=== PATIENT | male | born 1930 | race Caucasian/White ===

== ENCOUNTER 2018-04-25 10:30 | Outpatient (CLI) | payer MEDICARE, BC ==
--- NOTE | 2018-04-25 13:35 | CT ---
CT ABDOMEN AND PELVIS WITH IV CONTRAST: Date: 04/25/18 HISTORY: Colon cancer. COMPARISON: Noncontrasted CT scan of the abdomen and pelvis dated 12/21/16. FINDINGS: Mild chronic changes in the lung bases are again seen. The liver, spleen, right adrenal gland, and le ft kidney are normal. Fatty infiltration of the pancreas again seen. The 15.0 mm left adrenal nodule is stable. 9.0 mm cyst in the right kidney adjacent to a 6.0 mm exoph ytic probable complex nodule are stable. No free air, free fluid, or lymphadenopathy noted in the abdomen or pelvis. There are vascular calcif ications with stable 3.5 cm intrarenal abdominal aortic aneurysm and 2.8 cm right common iliac aneury sm. The prostate is enlarged. There is colonic diverticulosis. The small bowel loops are not abnormally d ilated. A normal appearing appendix is present. A tiny calculus is again seen in the gallbladder. A f at-containing left inguinal hernia is present. There are degenerative changes in the spine. Moderate spondylolisthesis at L5-S1 is again noted. IMPRESSION: 1. Stable right renal lesions. 2. Stable left adrenal nodule. 3. Prostatic enlargement. 4. Colonic diverticulosis. 5. Stable aneurysms of the abdominal aorta (3.5 cm) and right common iliac artery (2.8 cm). POS: [facility]
[2018-04-25] MEDS ORDERED: Iopamidol 370 76% 100 ML VIAL ONE (13:40)
== END 2018-04-25 10:31 | disposition home or self-care (01) ==
LOC: BICCT 10:30
PROVIDERS: ATTEND Internal Medicine Gastroenterology
DX: C18.9 Malignant neoplasm of colon, unspecified (principal); N28.9 Disorder of kidney and ureter, unspecified; E27.8 Other specified disorders of adrenal gland; N40.0 Benign prostatic hyperplasia without lower urinary tract symptoms; K57.30 Diverticulosis of large intestine without perforation or abscess without bleeding; I71.4 Abdominal aortic aneurysm, without rupture; I72.3 Aneurysm of iliac artery
CPT/HCPCS: 74177; 82565

== ENCOUNTER 2019-01-15 07:07 | Emergency (ER) | payer MEDICARE, BC ==
[2019-01-15 07:57] LABS: #Eosinphils 0.1 thou/uL (0.0-0.7); #Lymphocytes 1.1 thou/uL (1.20-3.40); #Monocytes 1.2 thou/uL (0.11-0.59); %Basophils 0.2 % (0.0-1.0); %Eosinophils 0.5 % (0.0-10.0); %Lymphocytes 10.4 % (21.0-51.0); %Neutrophils 76.9 % (42.0-75.0); Hemoglobin 12.9 g/dL (14.0-18.0); Mean Corpuscular HGB CONC 30.8 g/dL (32.0-36.0); Mean Corpuscular Hemoglobin 26.5 pg (27.0-31.0); Mean Platelet Volume 10.1 fL (7.4-10.4); Platelet Count 202 thou/uL (130-400); RBC Distribution Width 15.6 % (11.5-14.5); Red Blood Cell (RBC) Count 4.85 mill/uL (4.70-6.10); White Blood Cell (WBC) Count 10.4 thou/uL (4.8-10.8)
[2019-01-15] MEDS ORDERED: Carvedilol 6.25 MG TAB PO SCH ×2 (08:00→09:45)
[2019-01-15 08:19] LABS: ALT (SGPT) 14 U/L (8-55); AST (SGOT) 16 U/L (5-34); Albumin 4.4 g/dL (3.4-4.8); Alkaline Phosphatase 98 U/L (40-150); Anion Gap 16 mmol/L (10-20); BUN (Urea Nitrogen) 32 mg/dL (8.4-25.7); Bilirubin, Total 1.6 mg/dL (0.2-1.2); Calc. Creatinine Clearance 0 mL/min (70-130); Calcium 10.3 mg/dL (7.8-10.44); Carbon Dioxide 21 mmol/L (23-31); Chloride 106 mmol/L (98-107); Estimated GFR-MDRD 42; Globulin 3.1 g/dL (2.4-3.5); Glucose 172 mg/dL (83-110); Potassium 4.9 mmol/L (3.5-5.1); Protein, Total 7.5 g/dL (5.8-8.1); Sodium 138 mmol/L (136-145)
[2019-01-15 08:41] LABS: CKMB 2.6 ng/mL (0-6.6)
--- NOTE | 2019-01-15 08:43 | RAD ---
SINGLE VIEW CHEST: Date: 01/15/19 COMPARISON: 09/21/18. HISTORY: Shortness of breath that started last night. FINDINGS: Single view of chest shows an enlarged but stable cardiomediastinal silhouette. The pacemaker is unch anged in position. There is no evidence of consolidation, mass, or pleural effusion. IMPRESSION: Stable exam. POS: [facility]
[2019-01-15 11:54] LABS: CKMB 2.2 ng/mL (0-6.6)
[2019-01-15] MEDS ORDERED: Furosemide 20 MG/2 ML VIAL ONE (12:57)
[2019-01-15 13:41] LABS: Bilirubin Small (Negative); Blood, Urine Negative (Negative); Clarity CLEAR (Clear); Glucose, Urine (Dipstick) Negative (Negative); Leukocyte Small (Negative); Nitrite Negative (Negative); Protein, Urine (Dipstick) 30 mg/dL (Neg-Trace); Specific Gravity, Urine 1.025 (1.002-1.036); Urobilinogen 0.2 mg/dL (0.2-1.0)
[2019-01-15 13:45] LABS: Bacteria/HPF None Seen HPF (None Seen); RBC/HPF 0-3 HPF (0-3); Squamous Epithelial 0-3 HPF (0-3)
[2019-01-15 13:56] LABS: Hyaline Casts/LPF 7-10 HYALINE CAST LPF (0-3 Hyaline)
== END 2019-01-15 14:17 | disposition home or self-care (01) ==
LOC: ERS 07:07
DX: I48.91 Unspecified atrial fibrillation (principal); R60.9 Edema, unspecified; E03.9 Hypothyroidism, unspecified; I11.0 Hypertensive heart disease with heart failure; I50.9 Heart failure, unspecified; I25.2 Old myocardial infarction; E78.5 Hyperlipidemia, unspecified; F03.90 Unspecified dementia, unspecified severity, without behavioral disturbance, psychotic disturbance, mood disturbance, and anxiety; Z79.899 Other long term (current) drug therapy; Z79.891 Long term (current) use of opiate analgesic; Z79.82 Long term (current) use of aspirin
CPT/HCPCS: 36415; 71045; 80053; 81003; 81015; 82553; 83605; 83735; 83880; 84484; 85025; 87040; 87086; 93005; 96374; 96375; 96376; J1940

== ENCOUNTER 2019-03-20 12:02 | Day surgery (SDC) | payer MEDICARE, BC ==
[2019-03-19 10:36] VITALS: BMI 25.8
[~2019-03-20 12:02] MED LIST: Lidocaine 1% PF 5 ML VIAL ONE; PROPOFOL 200 MG/20 ML VIAL ONE
--- NOTE | 2019-03-20 21:19 | OP ---
DATE OF PROCEDURE: 03/20/2019 PROCEDURE PERFORMED: Colonoscopy with snare polypectomy. PREMEDICATION: Given by Anesthesiology Department. PREPROCEDURE DIAGNOSES: 1. Change in bowel function. 2. History of cecal cancer, status post right hemicolectomy. POSTPROCEDURE DIAGNOSES: 1. Sigmoid colon polyp. 2. Diverticulosis coli. 3. Severe narrowing of the sigmoid colon with stricturing. DESCRIPTION OF PROCEDURE: Written consents were obtained prior to procedure. After adequate sedation, rectal exam performed was normal. The endoscope was advanced to the sigmoid colon. The colon was extremely torturous with hypertrophic folds causing severe luminal narrowing and stricturing. A small caliber upper scope was then used to traverse the strictured area into the proximal colon. The anastomosis appeared normal. In the transverse colon, a 4 mm polyp was noted and was removed with snare electrocautery. The polyp was not retrieved. The descending colon appeared normal. There was severe stricturing of the sigmoid colon with hypertrophic folds and diverticulosis coli. In the lower sigmoid, a 6 mm sessile polyp was noted and was removed with snare electrocautery. The polyp was removed. Rectal vault appeared normal. The patient tolerated the procedure well. ASSESSMENT: 1. Severe sigmoid stricturing and narrowing of the lumen. 2. Diverticulosis coli. 3. Transverse colon polyp, not retrieved. 4. Sigmoid polyp, retrieved. PLAN: 1. Daily fiber supplement. 2. Await biopsy results. Job ID: [id number]
== END 2019-03-20 15:20 | disposition home or self-care (01) ==
LOC: SDC 12:02
PROVIDERS: ATTEND Internal Medicine Gastroenterology
PROC: 0DBH8ZX Excision of Cecum, Via Natural or Artificial Opening Endoscopic, Diagnostic (ICD-10-PCS; principal; 2019-03-20)
PROC: 0DBL8ZZ Excision of Transverse Colon, Via Natural or Artificial Opening Endoscopic (ICD-10-PCS; 2019-03-20)
DX: D12.5 Benign neoplasm of sigmoid colon (principal); K57.30 Diverticulosis of large intestine without perforation or abscess without bleeding; K63.89 Other specified diseases of intestine; K56.609 Unspecified intestinal obstruction, unspecified as to partial versus complete obstruction; K59.00 Constipation, unspecified; R19.7 Diarrhea, unspecified; I48.91 Unspecified atrial fibrillation; I25.10 Atherosclerotic heart disease of native coronary artery without angina pectoris; E78.00 Pure hypercholesterolemia, unspecified; I50.9 Heart failure, unspecified; I25.2 Old myocardial infarction; Z87.891 Personal history of nicotine dependence; Z85.038 Personal history of other malignant neoplasm of large intestine; Z79.82 Long term (current) use of aspirin; Z79.1 Long term (current) use of non-steroidal anti-inflammatories (NSAID); Z79.899 Other long term (current) drug therapy; Z88.8 Allergy status to other drugs, medicaments and biological substances; Z90.49 Acquired absence of other specified parts of digestive tract; Z98.0 Intestinal bypass and anastomosis status; Z95.5 Presence of coronary angioplasty implant and graft
CPT/HCPCS: 88305

== ENCOUNTER 2019-03-26 13:52 | Observation (INO) | payer MEDICARE, BC ==
--- NOTE | 2019-03-26 14:34 | RAD ---
XR Chest 1 View Portable HISTORY: Declining mental and physical status. COMPARISON: 01/15/2019 exams. FINDINGS: The heart size is enlarged. An internal defibrillator device is present. The lungs are ralph r of infiltrates. There are no signs of failure. IMPRESSION: Cardiomegaly. Stable chest.
[2019-03-26 14:38] LABS: #Eosinphils 0.2 thou/uL (0.0-0.7); #Lymphocytes 0.6 thou/uL (1.20-3.40); #Monocytes 0.5 thou/uL (0.11-0.59); #Neutrophils 6.1 thou/uL (1.40-6.50); %Eosinophils 2.8 % (0.0-10.0); %Lymphocytes 7.9 % (21.0-51.0); %Monocytes 7.3 % (0.0-10.0); Hemoglobin 11.7 g/dL (14.0-18.0); Mean Corpuscular HGB CONC 32.3 g/dL (32.0-36.0); Mean Corpuscular Hemoglobin 28.7 pg (27.0-31.0); Mean Corpuscular Volume 88.6 fL (78.0-98.0); Mean Platelet Volume 9.1 fL (7.4-10.4); Platelet Count 156 thou/uL (130-400); RBC Distribution Width 18.7 % (11.5-14.5); Red Blood Cell (RBC) Count 4.08 mill/uL (4.70-6.10); White Blood Cell (WBC) Count 7.4 thou/uL (4.8-10.8)
[2019-03-26 14:58] LABS: Anisocytosis SLIGHT = 6-15 cells (100X) (0-5/hpf); Elliptocytes SLIGHT = 2-5 cells (100X) (0-1/hpf); MDiff Complete? YES; Ovalocytes SLIGHT = 2-5 cells (100X) (0-1/hpf); Platelet Morphology Comment Appears Adequate; Poikilocytosis SLIGHT = 6-15 cells (100X) (0-5/hpf); Polychromasia SLIGHT = 2-3 cells (100X) (0-2/hpf); Spherocytes SLIGHT = 1-5 cells (100X) (None Seen)
[2019-03-26 15:01] LABS: ALT (SGPT) 16 U/L (8-55); AST (SGOT) 15 U/L (5-34); Albumin 3.5 g/dL (3.4-4.8); Alkaline Phosphatase 41 U/L (40-150); Anion Gap 14 mmol/L (10-20); BUN (Urea Nitrogen) 36 mg/dL (8.4-25.7); Bilirubin, Total 1.1 mg/dL (0.2-1.2); Calc. Creatinine Clearance 0 mL/min (70-130); Calcium 9.5 mg/dL (7.8-10.44); Carbon Dioxide 24 mmol/L (23-31); Chloride 104 mmol/L (98-107); Estimated GFR-MDRD 42; Globulin 2.3 g/dL (2.4-3.5); Glucose 131 mg/dL (83-110); Potassium 4.6 mmol/L (3.5-5.1); Protein, Total 5.8 g/dL (5.8-8.1); Sodium 137 mmol/L (136-145)
[2019-03-26 15:22] LABS: CKMB 2.9 ng/mL (0-6.6)
[2019-03-26 15:25] LABS: Bilirubin Negative (Negative); Blood, Urine Negative (Negative); Clarity CLEAR (Clear); Glucose, Urine (Dipstick) Negative (Negative); Leukocyte Negative (Negative); Nitrite Negative (Negative); Protein, Urine (Dipstick) 30 mg/dL (Neg-Trace); Specific Gravity, Urine 1.018 (1.002-1.036)
[2019-03-26 15:26] LABS: Bacteria/HPF None Seen HPF (None Seen); Hyaline Casts/LPF 0-3 HYALINE CAST LPF (0-3 Hyaline); Pathc Cast-AUWi Flag 0.13 (0-2.49); Squamous Epithelial 0-3 HPF (0-3); WBC/HPF 0-3 HPF (0-3)
[2019-03-26] MEDS ORDERED: Furosemide 40 MG/4 ML VIAL ONE (15:48)
[2019-03-26] MEDS ORDERED: Aspirin 325 MG TAB ONE (16:35)
[2019-03-26 18:45] VITALS: BMI 21.9
[2019-03-26] MEDS ORDERED: Acetaminophen 325 MG TAB PO PRN (18:47)
[2019-03-26] MEDS ORDERED: Sodium Chloride 0.9% 1,000 ML IV SCH (18:47)
[2019-03-26 19:43] LABS: Troponin I 0.103 ng/mL (< 0.028)
[2019-03-26] MEDS: Megestrol Acetate 800 MG/20 ML UDCUP PO SCH (21:20)
[2019-03-26] MEDS: Carvedilol 6.25 MG TAB PO SCH (21:21)
[2019-03-26] MEDS: Atorvastatin Calcium 40 MG TAB PO SCH (21:21)
[2019-03-26] MEDS: Apixaban 2.5 MG TAB PO SCH (21:21)
[2019-03-26] MEDS: Magnesium Oxide 400 MG TAB PO SCH (21:22)
[2019-03-26] MEDS: Sodium Chloride 0.9% 1,000 ML IV SCH (21:23)
[2019-03-26 22:16] LABS: Troponin I 0.107 ng/mL (< 0.028)
[2019-03-27 05:35] LABS: Anion Gap 14 mmol/L (10-20); BUN (Urea Nitrogen) 34 mg/dL (8.4-25.7); Calc. Creatinine Clearance 41 mL/min (70-130); Calcium 9.1 mg/dL (7.8-10.44); Carbon Dioxide 21 mmol/L (23-31); Cardiac Risk 4.1 (Less than 4.5); Chloride 107 mmol/L (98-107); Cholesterol 86 mg/dl (< 200 Desired); Estimated GFR-MDRD 55; Glucose 101 mg/dL (83-110); HDL Cholesterol 21 mg/dL (>60 Neg Risk); LDL Cholesterol, Calculated 50 mg/dL; Potassium 4.3 mmol/L (3.5-5.1); Sodium 138 mmol/L (136-145); Triglycerides 73 mg/dL (Less than 150)
[2019-03-27] MEDS: Levothyroxine Sodium 50 MCG TAB PO SCH (06:12)
[2019-03-27] MEDS: Sodium Chloride 0.9% 1,000 ML IV SCH ×3 (07:24→22:12)
--- NOTE | 2019-03-27 07:36 | HP ---
CHIEF COMPLAINT: Dehydration with congestive heart failure and general weakness. HISTORY OF PRESENT ILLNESS: The patient is an 88-year-old male who 1 week prior, had a colonoscopy with removal of a polyp. Since that time, he has had persistent diarrhea that did not let up until his finally gave him 1 Imodium 2 days ago. Since that time, he has not been able to drink much fluid, he does not like drinking water and he has gotten progressively weaker to the point he can barely ambulate at this point, and he occasionally has shortness of breath with exertion. His abdomen has been getting distended and she brought him in to Dr. Hoffmann' office for evaluation on the day of admission. Seeing his weakness and stated dehydration, he was sent to the hospital for IV fluids and further evaluation. There in the emergency room, his BNP came back over 1999 and it was decided to put him in the hospital for further evaluation and care. He has severe dementia. PAST MEDICAL HISTORY: Significant for CHF. He had an acute IN in 1985 with stent placement in year 1999. Pacemaker defibrillator has been placed. He has had moderate cognitive impairment, progressively to severe impairment over the last several months. He has hypertension, hypothyroidism, GERD, and dyslipidemia. PAST SURGICAL HISTORY: Includes the AICD and pacemaker placed in 2013 and 2015. He has had 2 stents placed in 2013 and an ablation. He has also had colon surgery. There is no psychiatric history. SOCIAL HISTORY: He is . Denies drug and alcohol use. Does not smoke. ALLERGIES: HE IS ALLERGIC TO NIACIN AND PRAVACHOL. MEDICATIONS: His medications on admission include; 1. Carvedilol 6.25 mg b.i.d. 2. Aspirin 81 mg daily. 3. Vitamin D3, 5000 units daily. 4. Ranitidine 150 mg daily. 5. Potassium 10 mEq daily. 6. Eliquis 2.5 mg b.i.d. 7. Namenda XL 28 mg daily. 8. Atorvastatin 40 mg nightly. 9. Cardizem CD 120. 10. Lasix 40 mg daily. 11. Imdur 60 mg daily. 12. Magnesium 40 mg at bedtime. 13. Megace suspension 2 teaspoons b.i.d. REVIEW OF SYSTEMS: CONSTITUTIONAL: Significant for general weakness, but denies headache or pain. He has also had anorexia necessitating the Megace. HEENT: Denies sores or drainage from ears, eyes, nose, or throat. In fact, his mucous membranes are dry. CHEST: Denies shortness of breath or cough. CARDIOVASCULAR: Denies chest pain or palpitations. GI: Denies nausea or vomiting, but has had protracted diarrhea until recently. : Denies blood in urine or stool. No painful urination or defecation. MUSCULOSKELETAL: Denies any pain in joints or muscle groups. Has had general muscle wasting noted. SKIN: No new rashes or lesions. PSYCHIATRIC: He has severe dementia. PHYSICAL EXAMINATION: At the time of admission; VITAL SIGNS: Pulse 91, respirations 16, blood pressure is 117/87, temperature 97.7, pain scale is zero, O2 saturation 94%. GENERAL: This is an elderly male, alert, cooperative. HEENT: Normocephalic, atraumatic. Pupils are equal, round, and reactive to light with arcus senilis bilaterally. TMs and nares clear. Pharynx is dry. NECK: Supple. Nontender. CHEST: Clear to auscultation. HEART: Regular rate and rhythm without murmur. ABDOMEN: Soft, scaphoid, unable to appreciate organomegaly or tenderness. : Deferred. EXTREMITIES: With muscle wasting in upper and lower extremities. Poor muscle tone, but no clubbing, cyanosis, or edema. Range of motion is good in all extremities. SKIN: As mentioned, has poor turgor. No acute lesions. NEUROLOGIC: Baseline confusion. Sensory exam is grossly intact. Too weak to walk or check cerebellar function. LABORATORY DATA: Lab work on admission; WBCs 7.4, hemoglobin 11.7, hematocrit 36.2 with platelets of 156. Sodium is 137, potassium 4.6, chloride 104, CO2 24, BUN 36, creatinine 1.55 with a GFR 42, glucose of 131. Liver functions normal. Mildly elevated troponin I at 0.113. BNP elevated at 2337. TSH is normal at 0.62. Urinalysis is unremarkable. ASSESSMENT: 1. Progressive weakness with severe dementia and deconditioning. 2. Congestive heart failure. 3. Dehydration. PLAN: Maintenance IV fluids with echocardiogram, serial re-evaluation, and cardiology consultation. Job ID: [id number]
[2019-03-27] MEDS: Aspirin Chewable 81 MG TAB PO SCH (09:22)
[2019-03-27] MEDS: Potassium Citrate 10 MEQ TAB PO SCH (09:22)
[2019-03-27] MEDS: Digoxin 0.125 MG TAB PO SCH (09:22)
[2019-03-27] MEDS: Apixaban 2.5 MG TAB PO SCH ×2 (09:22→21:26)
[2019-03-27] MEDS: Carvedilol 6.25 MG TAB PO SCH ×2 (09:22→21:27)
[2019-03-27] MEDS: Furosemide 20 MG TAB PO SCH (09:23)
[2019-03-27] MEDS: Isosorbide Dinitrate 20 MG TAB PO SCH (09:23)
[2019-03-27] MEDS: Cholecalciferol (Vitamin D3) 400 UNITS TAB PO SCH (09:23)
[2019-03-27] MEDS: Famotidine 20 MG TAB PO SCH (09:23)
[2019-03-27] MEDS: Megestrol Acetate 800 MG/20 ML UDCUP PO SCH ×2 (09:24→21:28)
[2019-03-27 10:40] LABS: #Eosinphils 0.2 thou/uL (0.0-0.7); #Lymphocytes 0.6 thou/uL (1.20-3.40); #Monocytes 0.5 thou/uL (0.11-0.59); #Neutrophils 5.5 thou/uL (1.40-6.50); %Eosinophils 3.1 % (0.0-10.0); %Lymphocytes 8.6 % (21.0-51.0); %Monocytes 6.7 % (0.0-10.0); %Neutrophils 81.6 % (42.0-75.0); Elliptocytes SLIGHT = 2-5 cells (100X) (0-1/hpf); Hemoglobin 11.6 g/dL (14.0-18.0); MDiff Complete? YES; Mean Corpuscular HGB CONC 32.7 g/dL (32.0-36.0); Mean Corpuscular Hemoglobin 28.9 pg (27.0-31.0); Mean Corpuscular Volume 88.6 fL (78.0-98.0); Mean Platelet Volume 8.8 fL (7.4-10.4); Ovalocytes SLIGHT = 2-5 cells (100X) (0-1/hpf); Platelet Count 150 thou/uL (130-400); Platelet Morphology Comment Appears Adequate; Polychromasia SLIGHT = 2-3 cells (100X) (0-2/hpf); RBC Distribution Width 18.8 % (11.5-14.5); Red Blood Cell (RBC) Count 4.02 mill/uL (4.70-6.10); White Blood Cell (WBC) Count 6.8 thou/uL (4.8-10.8)
[2019-03-27] MEDS: Sacubitril 24.5 MG/Valsartan 25.5 MG TABLET PO SCH (17:56)
--- NOTE | 2019-03-27 20:16 | CON ---
DATE OF CONSULTATION: 03/27/2019 HISTORY OF PRESENT ILLNESS: Mr. Marmolejo is a delightful 88-year-old gentleman with history of congestive heart failure, coronary artery disease, previous stent implantation, and myocardial infarction, also defibrillator, previously seen and evaluated here by Dr. Mcdowell. Primary ship manager, Dr. Peterson. The patient was seen by Dr. Mcdowell, here in September, was found to have chronic systolic heart failure, right lower lobe pneumonia. The patient was doing fairly well until recently, had to undergo a colonoscopy. After that, was not eating or drinking well. Finally, he was brought to the emergency room with weakness and fatigue, found to have markedly increased BNP, was admitted for evaluation and therapy. PAST MEDICAL HISTORY: 1. Coronary artery disease. 2. Previous stent implantation. 3. Previous defibrillator implantation, st. Hiro device. The device looks like a biventricular device. HOME MEDICATIONS: 1. Atorvastatin. 2. Furosemide. 3. Carvedilol. 4. Apixaban 2.5 mg twice a day. 5. Digoxin 0.125 mg a day. REVIEW OF SYSTEMS: CONSTITUTIONAL: No significant weight gain or loss. Vision, no changes. Hearing, no changes. PULMONARY: No cough or wheezing. GASTROINTESTINAL: He has some diarrhea. SKIN: No rashes. PHYSICAL EXAMINATION: GENERAL: This is a pleasant elderly gentleman, in no distress. VITAL SIGNS: Blood pressure 153/64, earlier 120/86, pulse 70. LUNGS: Clear. CARDIAC: Normal S1 and normal S2. ABDOMEN: Soft, nontender. EXTREMITIES: No clubbing or cyanosis. There is no edema. PERTINENT LABORATORY DATA: Hemoglobin is 11.6. Digoxin level 0.9. BNP was extremely high yesterday at 2337.6, 1667 this morning. Echocardiogram, ejection fraction 20% to 25%. There is severe mitral regurgitation. ASSESSMENT: 1. Congestive heart failure, systolic, chronic with a very high BNP. 2. Severe mitral regurgitation, likely related to left ventricular dilatation. PLAN: 1. We will continue to hydrate but reduce fluid rate. 2. Start Entresto. 3. Follow up with Dr. Peterson, as an outpatient. Job ID: [id number]
[2019-03-27] MEDS: Atorvastatin Calcium 40 MG TAB PO SCH (21:28)
[2019-03-27] MEDS: Magnesium Oxide 400 MG TAB PO SCH (21:28)
[2019-03-28] MEDS: Levothyroxine Sodium 50 MCG TAB PO SCH (06:14)
[2019-03-28] MEDS: Sacubitril 24.5 MG/Valsartan 25.5 MG TABLET PO SCH (06:14)
--- NOTE | 2019-03-28 06:31 | PDOC.CTH ---
Cardiology Progress Note - Objective Vital Signs Temp Pulse Resp BP BP Pulse Ox 03/28/19 02:50 98.5 F 68 20 112/76 98 03/27/19 23:12 97.7 F 75 16 119/73 96 03/27/19 21:27 107/65 03/27/19 18:57 97.9 F 88 15 115/72 95 Weight 159 lb 9.6 oz 03/26/19 03/27/19 03/28/19 06:59 06:59 06:59 Intake Total 1280 Output Total 300 1100 Balance -300 180 - Physical Examination General/Neuro: NAD Neck: no JVD present Lungs: CTA, unlabored respirations Heart: PMI normal, RRR Abdomen: NT/ND, soft Extremities: + femoral B - Labs Result Diagrams: 03/27/19 09:29 03/27/19 09:29 Troponin/CKMB CK-MB (CK-2) 2.9 ng/mL (0-6.6) 03/26/19 14:15 Troponin I 0.107 ng/mL (< 0.028) H 03/26/19 21:45 - Assessment/Plan Acute on chronic systolic failure CAD S/p stent AICD
[2019-03-28] MEDS: Megestrol Acetate 800 MG/20 ML UDCUP PO SCH (08:43)
[2019-03-28] MEDS: Isosorbide Dinitrate 20 MG TAB PO SCH (08:44)
[2019-03-28] MEDS: Potassium Citrate 10 MEQ TAB PO SCH (08:45)
[2019-03-28] MEDS: Cholecalciferol (Vitamin D3) 400 UNITS TAB PO SCH (08:45)
[2019-03-28] MEDS: Aspirin Chewable 81 MG TAB PO SCH (08:45)
[2019-03-28] MEDS: Digoxin 0.125 MG TAB PO SCH (08:45)
[2019-03-28] MEDS: Furosemide 20 MG TAB PO SCH (08:45)
[2019-03-28] MEDS: Carvedilol 6.25 MG TAB PO SCH (08:45)
[2019-03-28 08:46] VITALS: BP 115/70; TEMP 97.8
[2019-03-28] MEDS: Famotidine 20 MG TAB PO SCH (08:46)
[2019-03-28] MEDS: Apixaban 2.5 MG TAB PO SCH (09:40)
--- NOTE | 2019-03-30 17:22 | EKG ---
Test Reason : Blood Pressure : / mmHG Vent. Rate : 088 BPM Atrial Rate : 085 BPM P-R Int : 000 ms QRS Dur : 176 ms QT Int : 410 ms P-R-T Axes : 000 017 037 degrees QTc Int : 496 ms Electronic ventricular pacemaker Confirmed by ADRIANE DONG [id number]), multimedia editor BRITTNEY ROSARIO ([id number]) on 03/30/2019 5:22:04 PM Referred By: Confirmed By:ADRIANE DONG
== END 2019-03-28 09:56 | disposition home or self-care (01) ==
LOC: ERS 13:52 → 2SW 18:39
PROVIDERS: ADMIT Specialist; ATTEND Specialist
DX: I11.0 Hypertensive heart disease with heart failure (principal); I50.23 Acute on chronic systolic (congestive) heart failure; E86.0 Dehydration; I25.10 Atherosclerotic heart disease of native coronary artery without angina pectoris; I34.0 Nonrheumatic mitral (valve) insufficiency; F03.90 Unspecified dementia, unspecified severity, without behavioral disturbance, psychotic disturbance, mood disturbance, and anxiety; I25.2 Old myocardial infarction; E03.9 Hypothyroidism, unspecified; K21.9 Gastro-esophageal reflux disease without esophagitis; E78.5 Hyperlipidemia, unspecified; Z88.8 Allergy status to other drugs, medicaments and biological substances; Z95.810 Presence of automatic (implantable) cardiac defibrillator; Z95.5 Presence of coronary angioplasty implant and graft; Z79.82 Long term (current) use of aspirin; Z79.01 Long term (current) use of anticoagulants; Z79.899 Other long term (current) drug therapy; Z87.891 Personal history of nicotine dependence
CPT/HCPCS: 71045; 80048; 80061; 80162; 82274; 82553; 82565; 83880 ×2; 84443; 84484 ×2; 85025; 93005; 93306; 96361 ×3; 96374; 97116; 97139; 99285; G0378 ×2; 36415; 80053; 81003; 81015; J1940

== ENCOUNTER 2019-06-21 21:17 | Emergency (ER) | payer MEDICARE, BC ==
[2019-06-21 21:51] LABS: #Eosinphils 0.1 thou/uL (0.0-0.7); #Lymphocytes 1.3 thou/uL (1.20-3.40); #Monocytes 0.8 thou/uL (0.11-0.59); #Neutrophils 6.6 thou/uL (1.40-6.50); %Basophils 0.2 % (0.0-1.0); %Eosinophils 1.4 % (0.0-10.0); %Lymphocytes 14.9 % (21.0-51.0); %Monocytes 9.4 % (0.0-10.0); Hemoglobin 15.5 g/dL (14.0-18.0); Mean Corpuscular HGB CONC 32.1 g/dL (32.0-36.0); Mean Corpuscular Hemoglobin 31.3 pg (27.0-31.0); Mean Corpuscular Volume 97.7 fL (78.0-98.0); Mean Platelet Volume 8.1 fL (7.4-10.4); Platelet Count 178 thou/uL (130-400); RBC Distribution Width 15.4 % (11.5-14.5); Red Blood Cell (RBC) Count 4.93 mill/uL (4.70-6.10); White Blood Cell (WBC) Count 8.9 thou/uL (4.8-10.8)
[2019-06-21 22:10] LABS: ALT (SGPT) 17 U/L (8-55); AST (SGOT) 18 U/L (5-34); Alkaline Phosphatase 42 U/L (40-150); Anion Gap 16 mmol/L (10-20); BUN (Urea Nitrogen) 25 mg/dL (8.4-25.7); Bilirubin, Total 1.2 mg/dL (0.2-1.2); Calc. Creatinine Clearance 0 mL/min (70-130); Calcium 9.9 mg/dL (7.8-10.44); Carbon Dioxide 19 mmol/L (23-31); Chloride 105 mmol/L (98-107); Estimated GFR-MDRD 44; Globulin 2.6 g/dL (2.4-3.5); Glucose 111 mg/dL (83-110); Potassium 3.8 mmol/L (3.5-5.1); Protein, Total 6.6 g/dL (5.8-8.1); Sodium 136 mmol/L (136-145)
== END 2019-06-21 23:31 | disposition home or self-care (01) ==
LOC: ERS 21:17
DX: R19.7 Diarrhea, unspecified (principal); I11.0 Hypertensive heart disease with heart failure; I50.9 Heart failure, unspecified; I25.2 Old myocardial infarction; I49.9 Cardiac arrhythmia, unspecified; I48.91 Unspecified atrial fibrillation; E03.9 Hypothyroidism, unspecified; E78.5 Hyperlipidemia, unspecified; F03.90 Unspecified dementia, unspecified severity, without behavioral disturbance, psychotic disturbance, mood disturbance, and anxiety; Z85.038 Personal history of other malignant neoplasm of large intestine; Z79.82 Long term (current) use of aspirin; Z79.899 Other long term (current) drug therapy
CPT/HCPCS: 36415; 80053; 85025; 96360

== ENCOUNTER 2019-06-25 10:59 | Outpatient (CLI) | payer MEDICARE, BC ==
--- NOTE | 2019-06-25 11:44 | RAD ---
TWO VIEWS ABDOMEN: DATE: 06/25/2019. PROVIDED CLINICAL HISTORY: Diarrhea. FINDINGS: Visualized lung bases are free of significant opacity. Cardiac pacing device wires are partially vis ualized. There is no evidence for pneumoperitoneum. The abdominal bowel gas pattern is nonspecific. Degenerative changes are seen involving the lumbar spine. No radiographically apparent urinary tra ct calculi. IMPRESSION: Nonspecific bowel gas pattern. POS: [facility]
== END 2019-06-25 11:00 | disposition home or self-care (01) ==
LOC: BICRAD 10:59
PROVIDERS: ATTEND Physician Assistant Medical
DX: R19.7 Diarrhea, unspecified (principal); R13.10 Dysphagia, unspecified
CPT/HCPCS: 74019